=== PATIENT | female | born 1975 | race Asian ===

== ENCOUNTER 2019-10-31 17:59 | Emergency (ER) | payer MEDICAID ==
[~2019-10-31] VITALS: Ht 162.6 cm; Wt 58.5 kg
[2019-10-31 18:05] VITALS: BP 121/82
== END 2019-10-31 20:25 | disposition home or self-care (01) ==
LOC: ER 18:00
DX: N93.9 Abnormal uterine and vaginal bleeding, unspecified (principal); R10.2 Pelvic and perineal pain; F17.200 Nicotine dependence, unspecified, uncomplicated; Z90.710 Acquired absence of both cervix and uterus; Z72.89 Other problems related to lifestyle
CPT/HCPCS: 76830; 76856; 93976; 99284

== ENCOUNTER 2022-05-10 20:37 | Emergency (ER) | payer MEDICAID ==
[~2022-05-10] VITALS: Ht 162.6 cm; Wt 66.2 kg
[2022-05-10 21:43] VITALS: BP 110/79
[2022-05-10] MEDS ORDERED: IBUP-1984 PO (23:22)
[2022-05-10] MEDS ORDERED: ONDA4TAB12 PO (23:22)
[2022-05-10] MEDS ORDERED: HYDR-3965 PO (23:22)
[2022-05-10] MEDS ORDERED: HYDROcodone/acetaminophen 10/325mg tab PO ONE (23:25)
[2022-05-10] MEDS ORDERED: ondansetron 4mg rapidly disintigrating tab PO ONE (23:25)
== END 2022-05-10 23:40 | disposition home or self-care (01) ==
LOC: ER 20:37
DX: S50.12XA Contusion of left forearm, initial encounter (principal); X50.1XXA Overexertion from prolonged static or awkward postures, initial encounter; Y93.89 Activity, other specified; Y92.89 Other specified places as the place of occurrence of the external cause; Y99.0 Civilian activity done for income or pay; Z90.710 Acquired absence of both cervix and uterus; Z72.89 Other problems related to lifestyle; Z79.899 Other long term (current) drug therapy
CPT/HCPCS: 73090; 73110; 99284

== ENCOUNTER 2022-07-19 15:36 | Emergency (ER) | payer MEDICAID ==
[~2022-07-19] VITALS: Ht 162.6 cm; Wt 67.3 kg
[~2022-07-19 15:36] MED LIST: ONDA4TAB12 PO
[2022-07-19 15:53] VITALS: BP 123/81
[2022-07-19 16:14] LABS: BASOPHILS % (AUTO) 0.6 % (0-1); EOSINOPHILS % (AUTO) 0.8 % (0-6); HEMATOCRIT 41.3 % (35.0-45.0); LYMPHOCYTES % (AUTO) 21.1 % (21-51); MEAN CORPUSCULAR HEMOGLOBIN 31.9 PG (27.0-31.0); MEAN CORPUSCULAR VOLUME 93.7 FL (78-98); MONOCYTES # (AUTO) 0.3 X10'3 (0-0.9); MONOCYTES % (AUTO) 6.8 % (2-12); NEUTROPHILS # (AUTO) 3.4 X10'3 (1.8-7.7); NEUTROPHILS % (AUTO) 70.7 % (42-75); PLATELET COUNT 245 X10'3 (140-440); RED CELL DISTRIBUTION WIDTH 12.4 % (11.5-14.5); WHITE BLOOD COUNT 4.8 X10'3 (4.5-11.0)
[2022-07-19 16:27] LABS: ALANINE AMINOTRANSFERASE 17 U/L (12-78); ALBUMIN 4.2 G/DL (3.4-5.0); ALBUMIN/GLOBULIN RATIO 1.4 (1.1-1.5); ALKALINE PHOSPHATASE 59 IU/L (46-116); ANION GAP 9 (8-16); ASPARTATE AMINO TRANSFERASE 12 U/L (10-37); BILIRUBIN,TOTAL 0.5 MG/DL (0.1-1.0); BLOOD UREA NITROGEN 16 MG/DL (7-18); BUN/CREATININE RATIO 21.3 (10.0-20.0); CALCIUM 9.1 MG/DL (8.5-10.1); CHLORIDE 105 MMOL/L (99-107); CREATININE 0.75 MG/DL (0.40-0.90); GLUCOSE 108 MG/DL (70-104); POTASSIUM 3.9 MMOL/L (3.5-5.1); SODIUM 140 MMOL/L (135-145); TOTAL CARBON DIOXIDE 26.1 MMOL/L (24-32); TOTAL PROTEIN 7.3 G/DL (6.4-8.2); eGFR 83 ML/MIN
[2022-07-19 16:33] LABS: MAGNESIUM 2.3 MG/DL (1.5-2.4)
== END 2022-07-19 21:44 | disposition left against medical advice (07) ==
LOC: ER 15:38
DX: R51.9 Headache, unspecified (principal); Z53.21 Procedure and treatment not carried out due to patient leaving prior to being seen by health care provider; Z79.899 Other long term (current) drug therapy
CPT/HCPCS: 36415; 70450; 71045; 80053; 83735; 83880; 84484; 85025; 93005; 99281

== ENCOUNTER 2024-01-21 05:46 | Emergency (ER) | payer MEDICAID ==
[~2024-01-21] VITALS: Ht 162.6 cm; Wt 67.7 kg
[~2024-01-21 05:46] MED LIST changes: +ONDA-243 PO; -ONDA4TAB12 PO
[2024-01-21] MEDS ORDERED: ketorolac trometh 30MG/ML vial 30 MG/ML VIAL IM ONE (07:45)
[2024-01-21] MEDS ORDERED: OXYC-658 PO (07:55)
[2024-01-21] MEDS ORDERED: METH4TAB81 PO (07:55)
[2024-01-21] MEDS ORDERED: CYCL-1 PO (08:01)
[2024-01-21] MEDS: predniSONE 20 mg tablet PO ONE (08:33)
[2024-01-21] MEDS: oxyCODONE IR 5mg (immed. release) tablet PO ONE (08:34)
[2024-01-21] MEDS: ketorolac trometh 15mg/ml vial 15 MG/ML ML IM ONE (08:35)
[2024-01-21 09:29] VITALS: BP 138/80; PULSE 88; RESP 14; TEMP 98; O2SAT 98
== END 2024-01-21 09:31 | disposition home or self-care (01) ==
LOC: ER 05:46
DX: S46.811A Strain of other muscles, fascia and tendons at shoulder and upper arm level, right arm, initial encounter (principal); Z79.899 Other long term (current) drug therapy; Z90.710 Acquired absence of both cervix and uterus; X58.XXXA Exposure to other specified factors, initial encounter; Y93.89 Activity, other specified; Y92.89 Other specified places as the place of occurrence of the external cause; Y99.8 Other external cause status
CPT/HCPCS: 96372; 99283; J1885; J7512